=== PATIENT | female | born 1945 | race Caucasian/White ===

== ENCOUNTER → 2017-06-09 | Outpatient (CLI) | payer OTHER ==
[~2017-06-09] MED LIST: ASPIRIN81 M2 PO; CALTRATE 600 +1 EACH PO; CALTRATE PLUS T1 TAB PO; CIPRO250 MG PO; ESTRACE0.5 MG PO; FISH OIL 1,0001 CAP PO; FISH OIL 1,2001 EACH PO; FLAGYL250 M1 PO; LIPITOR20 MG PO; LISINOPRIL PO; MULTI VITAMIN1 EACH PO; MULTI-VIT/MIN P1 TAB PO; PREMARIN PO; VITAMIN B12-FO1 EACH PO; VITAMIN D3 PO; ZOCOR PO
--- NOTE | ~2017-06-09 | BD1 ---
[facility] A Service of [facility] & [facility] RADIOLOGY TEXT RESULTS PATIENT: MAR IVY LOCATION: [facility] : 45 UNIT #: [id number] AGE: [address]: Yo Crews MD SEX: F ORDER DR: [id number] [facility] [address] [place], [place] [address] [id number] O MR#: [id number] Acc #: [id number] NAME: MAR IVY. : 1945 SEX: F STUDY DATE/TIME: 06/09/2017 10:49 UNIT: [facility] ROOM: STUDY DESCRIPTION: BD Dexa Bone Dens 1+ Site Attending Physician: Yo Crews M.D. Referring Physician: Yo Crews M.D. Ordering Physician: Yo Crews M.D. Primary Care Physician: Shanice Lora M.D. MEDICAL IMAGING REPORT This report is preliminary unless electronic signature is present EXAM DXA scan 06/09/2017 HISTORY Status post menopause with history of hormone replacement therapy. Osteopenia. Hysterectomy at age 55 with removal of both ovaries. Arthritis. Hyperthyroidism. Hypertension with blood pressure medication for 15 years. Family of osteoporosis in grandmother. FINDINGS Bone mineral density in the lumbar spine from L1-L4 was 1.146 g/cm2 which is 0.9 standard deviations above the mean when compared to the young adult reference population which is within the range of normal. This is 3.1 standard deviations above the mean when compared to the age-matched population. Bone mineral density in the left femoral neck was 0.666 g/cm2 which is 1.6 standard deviations below the mean when compared to the young adult reference population which is characteristic of osteopenia. This is 0.2 standard deviations above the mean when compared to the age-matched population. IMPRESSION Bone mineral density in the lumbar spine within the range of normal and within the left hip characteristic of osteopenia. Dictated by... Guido Proctor M.D. THIS IS AN ELECTRONICALLY VERIFIED REPORT Guido Proctor M.D. at 06/10/2017 2:17 PM KRT/pcl STS. [facility] A Service of [facility] & [facility] RADIOLOGY TEXT RESULTS PATIENT: MAR IVY LOCATION: [facility] : 45 UNIT #: [id number] AGE: [address]: Yo Crews MD SEX: F ORDER DR: TD: 06/09/2017 21:10 JOB #: [id number] MEDICAL IMAGING REPORT Page 1 of 1 COPY
== END | disposition home or self-care (01) ==
LOC: CWCC 10:23
DX: Z13.820 Encounter for screening for osteoporosis (principal); M85.88 Other specified disorders of bone density and structure, other site
CPT/HCPCS: 77080